=== PATIENT | female | born 1930 | race Caucasian/White ===

== ENCOUNTER → 2017-05-16 | Outpatient (CLI) | payer MEDICARE ==
[2017-05-16 09:15] LABS: EKG EKG PERFORMED
[2017-05-16 09:49] LABS: HCT 37.9 % (34.0-46.0); HDW 2.36; HGB 12.7 gm/dL (11.4-16.0); MCH 31.8 pg (25.0-35.0); MCHC 33.6 g/dL (31.0-37.0); MCV 94.6 fL (80.0-100.0); Mean Platelet Volume 6.8; RBC 4.01 m/uL (3.80-5.40); RDW 13.5 % (11.5-15.5); WBC 5.5 k/uL (3.8-10.6)
[2017-05-16 09:56] LABS: Partial Thromboplastin Time 22.4 sec (22.0-30.0); Prothrombin Time 9.9 sec (9.0-12.0)
[2017-05-16 10:07] LABS: ALT 37 U/L (9-52); AST 24 U/L (14-36); Alkaline Phosphatase 84 U/L (38-126); Anion Gap 10 mmol/L; Blood Urea Nitrogen 32 mg/dL (7-17); Calcium 9.3 mg/dL (8.4-10.2); Carbon Dioxide 26 mmol/L (22-30); Chloride 106 mmol/L (98-107); Glucose 102 mg/dL (74-99); Non-African American GFR(MDRD) 40 (>60 ml/min/1.73 sqM); Potassium 5.3 mmol/L (3.5-5.1); Sodium 142 mmol/L (137-145); Total Bilirubin 0.6 mg/dL (0.2-1.3); Total Protein 6.8 g/dL (6.3-8.2)
[2017-05-16 10:23] LABS: Appearance,Urine Clear (Clear); Bacteria,Urine Rare /hpf; Bilirubin,Urine Negative (Negative); Glucose,Urine (UA) Negative (Negative); Ketones,Urine Negative (Negative); Leukocyte Esterase,Urine Large (Negative); Mucus,Urine Rare /hpf; Nitrite,Urine Negative (Negative); PH, Urine 5.5 (5.0-8.0); Particle Count 2680; Protein,Urine Negative (Negative); RBC,Urine 11 /hpf (0-5); Specific Gravity,Urine 1.016 (1.001-1.035); Squamous Epithelial Cell,Urine 1 /hpf (0-4); UA Billing (MACRO vs. MICRO) MICRO; Urobilinogen,Urine <2.0 mg/dL (<2.0); WBC,Urine 16 /hpf (0-5)
== END | disposition home or self-care (01) ==
LOC: LABPAT 09:03
PROVIDERS: ATTEND Orthopaedic Surgery
DX: Z01.810 Encounter for preprocedural cardiovascular examination (principal); Z01.812 Encounter for preprocedural laboratory examination
CPT/HCPCS: 80053; 81001; 85027; 85610; 85730; 87070; 93005

== ENCOUNTER 2017-06-03 05:46 | Inpatient (IN) | payer MEDICARE ==
[2017-05-30 08:34] VITALS: BMI 35.5
--- NOTE | 2017-05-31 16:14 | CONS ---
REASON FOR CONSULTATION: Preoperative evaluation for right total knee arthroplasty. The patient is scheduled to undergo surgery on 06/03/2017. CHIEF COMPLAINT: Pain, right knee. HISTORY OF PRESENT ILLNESS: This elderly female has significant pain and degenerative arthritic symptoms in the right knee. The patient in view of this was evaluated for preoperative clearance upon request of Dr. Garcia. The patient has a history of hypertension which is fairly well controlled. No history of any coronary disease. She does follow with a underwear cutter. The patient has had history of impaired fasting blood sugars, with no problems of hyperglycemia. She does try to follow a healthy diet. No history of any coronary artery disease , cerebrovascular disease or any bleeding disorders. No recent infections. Past medical history is significant for: 1. Hypertension. 2. Degenerative arthritis, lumbosacral spine. 3. Obesity. 4. Impaired fasting blood glucose. 5. Osteoarthritis. 6. Mild intermittent bronchial asthma. 7. Asymptomatic sigmoid diverticulosis. Past surgical history is significant for: 1. Lumbosacral disc surgery. 2. Cholecystectomy. 3. Total abdominal hysterectomy with bilateral salpingo-oophorectomy. 4. Cataract surgery. SOCIAL HISTORY: Patient is a . Lives alone. No children at home. She takes care of herself. She has 2 boys who do the help. She spends quite a bit of time busy, doing gardening. PERSONAL HISTORY: Never smoked. No alcohol. ALLERGIES: LEVAQUIN causes rash. Medications include: 1. Losartan/hydrochlorothiazide 50/12.5 one daily. 2. Advair Diskus 100/50 one puff b.i.d. 3. Aldactone 25 mg daily. 4. Aspirin 81 mg daily. 5. Simvastatin 20 mg daily. REVIEW OF SYSTEMS: NEURO: Denies any headaches, dizziness, double vision, blurred vision. No symptoms of TIA, syncope, seizures. PSYCH: No anxiety, depression. CARDIAC: Denies chest pain, angina, palpitations. RESPIRATORY: Denies shortness of breath, cough, hemoptysis. GI: Denies any frequent nausea, vomiting, abdominal pain, diarrhea. : Denies any symptoms of dysuria or hematuria, urgency, frequency. EXTREMITIES: Denies any pain, edema. CONSTITUTIONAL: No fever or chills, weight gain or weight loss HEMATOLOGICAL: No anemia, bleeding disorder. ENDOCRINE: History of impaired fasting blood sugars. No significant problems with diabetes. SKIN: No rashes or open sores. MUSCULOSKELETAL: Pain in the right knee. PHYSICAL EXAMINATION: Pleasant female in no distress. VITAL SIGNS: Blood pressure 120/80, pulse rate 94 per minute, weight 213 pounds , height 5 feet 4 inches. HEENT: Normocephalic. Pupils reactive. Nostrils clear. Oral cavity moist. Pharynx clear. No gum disease. NECK: No JVD, carotid bruits or thyromegaly. CHEST: Clear to auscultation and percussion. CARDIAC: Normal S1, S2 with no gallops or murmurs. ABDOMEN: Soft. Bowel sounds present. Extremities revel no edema. Good pulses, both upper and lower extremities. Neurologically awake, alert, oriented x3 with well-coordinated movements. LABORATORY ASSESSMENT: Urine analysis which was positive for ( ) and treated with Bactrim. Patient's potassium was 5.3, BUN 32, creatinine 1.26 and GFR of 40. Normal hepatic function. CBC is normal. INR is normal. EKG was reported to have no acute changes. ASSESSMENT: 1. Hypertension, controlled. 2. Chronic kidney disease, stage III, secondary to hypertension. 3. History of impaired fasting blood sugars. 4. Degenerative arthritis, right knee. PLAN: Patient's Aldactone has been stopped. Recheck potassium prior to surgery. Anticipate potassium level to be in normal range. Patient appears stable to undergo the planned surgical procedure. Patient's condition discussed with the patient. MATYD
[~2017-06-03 05:46] MED LIST: ACETAMINOPHEN TAB 500 MG TAB PO ONE; HYDROmorphone 1 MG/ML 1 ML SYRINGE IVP PRN; MELOXICAM 7.5 MG TAB PO ONE; ONDANSETRON 4 MG/2 ML VIAL IVP ONE; TRANEXAMIC ACID 1,000 MG in SODIUM CHLORIDE 0.9% 100 ML IVPB ONE; ceFAZolin 2 GM in SODIUM CHLORIDE 0.9% 100 ML IVPB ONE
[2017-06-03] MEDS: LACTATED RINGERS 1,000 ML IV SCH ×3 (06:33→21:29)
[2017-06-03] MEDS ORDERED: fentaNYL (PF) 50 MCG/ML 2 ML AMP ONE (07:12)
[2017-06-03] MEDS ORDERED: TRANEXAMIC ACID 1,000 MG/10 ML VIAL ONE (07:12)
[2017-06-03] MEDS ORDERED: SODIUM CHLORIDE 0.9% 100 ML BAG ONE (07:12)
[2017-06-03] MEDS ORDERED: MIDAZOLAM 2 MG/2 ML VIAL ONE (07:12)
[2017-06-03] MEDS ORDERED: ePHEDrine 50 MG/ML 1 ML AMP ONE (07:12)
[2017-06-03] MEDS ORDERED: ceFAZolin 3,000 MG in SODIUM CHLORIDE 0.9% IRRIGATIO 3,000 ML IRRIGATION ONE (08:13)
[2017-06-03] MEDS ORDERED: LACTATED RINGERS 1,000 ML IV ONE ×2 (08:57)
[2017-06-03] MEDS ORDERED: MAGNESIUM HYDROXIDE 2,400 MG/10 ML CUP PO PRN (09:31)
[2017-06-03] MEDS ORDERED: ONDANSETRON 4 MG/2 ML VIAL IVP PRN (09:31)
[2017-06-03] MEDS ORDERED: NALOXONE 0.4 MG/ML 1 ML VIAL IV PRN (09:31)
[2017-06-03] MEDS ORDERED: HYDROmorphone 1 MG/ML 1 ML SYRINGE IVP PRN ×3 (09:31)
[2017-06-03] MEDS ORDERED: ACETAMINOPHEN TAB 325 MG TAB PO PRN (09:31)
[2017-06-03] MEDS ORDERED: BISACODYL 10 MG SUPP RECTAL PRN (09:31)
[2017-06-03] MEDS ORDERED: HYDROcodone/APAP 5-325MG 1 EACH TAB PO PRN (09:31)
[2017-06-03] MEDS ORDERED: NA PHOS,M-B/NA PHOS,DI-BA 133 ML ENEMA RECTAL PRN (09:31)
--- NOTE | 2017-06-03 10:07 | XR ---
EXAMINATION TYPE: XR knee limited RT DATE OF EXAM: 06/03/2017 COMPARISON: NONE HISTORY: Postop alignment right knee prosthesis TECHNIQUE: 2 views right knee FINDINGS: Right knee prosthesis is been placed tibial and femoral and patellar components. Postsurgic al changes are within the joint space. No acute fractures are evident. IMPRESSION: 1. No acute fractures post knee replacement.
[2017-06-03] MEDS: ceFAZolin 2 GM in SODIUM CHLORIDE 0.9% 100 ML IVPB SCH ×2 (16:21→23:58)
[2017-06-03] MEDS ORDERED: WARFARIN 5 MG TAB PO ONE (18:00)
[2017-06-03] MEDS: SENNOSIDES-DOCUSATE SODIUM 1 EACH TAB PO SCH (20:44)
[2017-06-03] MEDS: HYDROcodone/APAP 5-325MG 1 EACH TAB PO PRN (20:44)
[2017-06-03] MEDS ORDERED: TEMAZEPAM 15 MG CAP PO PRN (22:00)
[2017-06-03] MEDS: SYMBICORT 80-4.5 MCG INHALER INHALATION SCH (22:04)
[2017-06-04] MEDS: HYDROcodone/APAP 5-325MG 1 EACH TAB PO PRN ×3 (04:06→16:25)
[2017-06-04 07:10] LABS: INR 1.6 (<1.2); Prothrombin Time 15.2 sec (9.0-12.0)
[2017-06-04 07:13] LABS: Basophils % (A) 0 %; CH 32.3; CHCM 33.6; Eosinophils % (A) 0 %; HCT 32.9 % (34.0-46.0); HDW 2.39; HGB 10.9 gm/dL (11.4-16.0); Luc # (Auto) 0.08; Luc % (Auto) 1; Lymphocytes # (A) 1.3 k/uL (1.0-4.8); Lymphocytes % (A) 16 %; MCH 32.2 pg (25.0-35.0); MCHC 33.3 g/dL (31.0-37.0); MCV 96.6 fL (80.0-100.0); Mean Platelet Volume 7.5; Monocytes # (A) 0.4 k/uL (0-1.0); Monocytes % (A) 5 %; Neutrophils # (A) 6.7 k/uL (1.3-7.7); Neutrophils % (A) 79 %; RDW 14.2 % (11.5-15.5); WBC 8.5 k/uL (3.8-10.6); WBC (Perox) 8.89
[2017-06-04] MEDS ORDERED: ASPIRIN 81 MG CHEW PO SCH (09:00)
[2017-06-04] MEDS: SYMBICORT 80-4.5 MCG INHALER INHALATION SCH ×2 (09:11→21:01)
[2017-06-04] MEDS: hydrOXYzine PAMOATE 25 MG CAP PO PRN ×2 (10:18→16:25)
--- NOTE | 2017-06-04 11:19 | P.PN ---
Subjective Principal diagnosis: Status post right total knee arthroplasty Patient is seen at bedside this morning. She is postop day #1 from a right total knee arthroplasty. She has pain at the surgical site as expected but denies any new complaints. She denies numbness, tingling or calf pain. Review of systems is negative for fever, chills, chest pain, shortness of breath or other. Objective - Vital Signs Vital signs: Vital Signs Temp 97.8 F 06/04/17 07:00 Pulse 67 06/04/17 07:00 Resp 14 06/04/17 07:00 BP 144/68 06/04/17 07:00 Pulse Ox 94 L 06/04/17 07:00 Intake & Output 06/03/17 06/04/17 06/04/17 18:59 06:59 18:59 Intake Total 1831 1300 Output Total 290 1200 600 Balance 1541 100 -600 Weight 93.894 kg Intake: IV 1401 Lactated Ringers 1,000 ml 300 @ 100 mls/hr IV .Q10H CHLOÉ Rx#:[id number] Intake, IV Titration 1300 Amount Lactated Ringers 1,000 ml 1200 @ 100 mls/hr IV .Q10H CHLOÉ Rx#:[id number] ceFAZolin 2 gm In Sodium 100 Chloride 0.9% 100 ml @ 100 mls/hr IVPB Q8H CHLOÉ Rx#:[id number] Oral 430 Output: Urine 110 1200 600 Uretheral ([place]) 600 Estimated Blood Loss 180 Other: Voiding Method Indwelling Catheter Indwelling Catheter - Exam Inspection reveals a benign surgical wound. There is no active bleeding or drainage. Neurovascular status is intact throughout the lower extremity with motor and sensation fully intact. Calf is soft and nontender. 2+ dorsalis pedis pulse and less than 2 second cap refill is present. - Constitutional General appearance: Present: no acute distress - Psychiatric Psychiatric: Present: A&O x's 3, appropriate affect, intact judgment & insight - Labs CBC & Chem 7: 06/04/17 06:38 06/03/17 06:26 Labs: Abnormal Lab Results - Last 24 Hours (Table) 06/04/17 06/04/17 Range/Units 06:38 06:38 RBC 3.40 L (3.80-5.40) m/uL Hgb 10.9 L (11.4-16.0) gm/dL Hct 32.9 L (34.0-46.0) % PT 15.2 H (9.0-12.0) sec INR 1.6 H (<1.2) Assessment and Plan (1) Status post total right knee replacement Narrative/Plan: She will continue with routine postop orthopedic protocol including pain management, wound care, physical therapy, DVT prophylaxis and medical management. Expect that she will discharge to home tomorrow, Tuesday Status: Acute Time with Patient: Less than 30
--- NOTE | 2017-06-04 11:37 | PN ---
HISTORY OF PRESENT ILLNESS: This is an 86-year-old female who was admitted to the hospital and has undergone right total knee arthroplasty. Patient is seen postoperatively. She does have a history of bronchial asthma, previous history of impaired fasting blood sugars and hypertension. No history of any lung disease. REVIEW OF SYSTEMS: NEURO: Denies any headaches, dizziness. PSYCH: No anxiety. CARDIAC: Denies chest pain, angina, palpitations. RESPIRATORY: Denies shortness of breath or wheezing. GI: No nausea, vomiting, abdominal pain, diarrhea. : No symptoms of dysuria or hematuria. Has IDC. EXTREMITIES: Denies pain at present. CONSTITUTIONAL: No fever or chills. PHYSICAL EXAMINATION: Pleasant female in no distress. VITAL SIGNS: Temperature was 96.1, pulse 71, respiration 16, blood pressure 134/ 65, pulse ox of 95% on 1 L. HEENT: Normocephalic. NECK: Supple. No JVD. CHEST: Clear to auscultation. CARDIAC: Normal S1, S2 with no gallops or murmurs. ABDOMEN: Soft. Bowel sounds present. Extremities revel no edema. Neurologically awake, alert, oriented x3 with well-coordinated movements, both upper extremities. LABORATORY ASSESSMENT: Potassium of 4.4 this morning, preoperatively. ASSESSMENT: 1. Hypertension, controlled. 2. History of bronchial asthma, stable. 3. Status post knee arthroplasty. PLAN: The patient is stable. Continue present medical regimen. Patient's condition was discussed with the patient. Prognosis guarded. MTDD
[2017-06-04] MEDS ORDERED: WARFARIN 2.5 MG TAB PO ONE (18:00)
[2017-06-04] MEDS: LACTATED RINGERS 1,000 ML IV SCH ×2 (18:13→20:57)
--- NOTE | 2017-06-04 21:24 | P.PN ---
Subjective Principal diagnosis: Status post right knee arthroplasty History present illness and Hospital course: This 86-year-old female is status post right knee arthroplasty. She has a history of hypertension controlled on medications. History of degenerative arthritis. History of bronchial asthma with mild intermittent disease processes with no acute symptoms. She is doing well. Denies any symptoms except for mild pain in the right knee. Denies any headaches or dizziness patient's pains controlled with medication. She did take a few steps today. REVIEW OF SYSTEMS: Neuro: Denies any headaches dizziness. Psych: Denies anxiety depression feels oriented. Cardiac: Denies chest pain and angina palpitations. Respiratory: Denies shortness of breath cough. GI: Denies nausea vomiting or abdominal pain. No diarrhea or constipation, no bowel movement yet. : Denies dysuria hematuria. Extremities: Right knee pain. No edema. Skin: Intact. Constitutional: No fever, chills. Objective - Vital Signs Vital signs: Vital Signs Temp 98.2 F 06/04/17 15:00 Pulse 84 06/04/17 15:00 Resp 16 06/04/17 15:00 BP 130/92 06/04/17 15:00 Pulse Ox 97 06/04/17 15:00 Intake & Output 06/04/17 06/04/17 06/05/17 06:59 18:59 06:59 Intake Total 1300 Output Total 1200 600 Balance 100 -600 Weight 93.894 kg Intake: Intake, IV Titration 1300 Amount Lactated Ringers 1,000 ml 1200 @ 100 mls/hr IV .Q10H CHLOÉ Rx#:[id number] ceFAZolin 2 gm In Sodium 100 Chloride 0.9% 100 ml @ 100 mls/hr IVPB Q8H CHLOÉ Rx#:[id number] Output: Urine 1200 600 Uretheral ([place]) 600 Other: Voiding Method Toilet # Voids 3 PHYSICAL EXAMINATION: Cooperative, at present in no acute distress. HEENT: Neck supple. No JVD. Chest: Clear to auscultation. Cardiac: Normal S1-S2 no gallops no murmur . Abdomen: Soft bowel sounds present. Extremities: edema right lower leg Neurologically:[Awake, alert, oriented with well-coordinated movements Upper extremities] - Labs CBC & Chem 7: 06/04/17 06:38 06/03/17 06:26 Labs: Abnormal Lab Results - Last 24 Hours (Table) 06/04/17 06/04/17 Range/Units 06:38 06:38 RBC 3.40 L (3.80-5.40) m/uL Hgb 10.9 L (11.4-16.0) gm/dL Hct 32.9 L (34.0-46.0) % PT 15.2 H (9.0-12.0) sec INR 1.6 H (<1.2) Assessment and Plan Plan: ASSESSMENT: 1. Hypertension controlled. 2. Mild intermittent bronchial asthma with no active symptoms. 3. Obesity. 4. Right knee status post arthroplasty. 5. Anemia secondary to acute blood loss postsurgery. PLAN: Continue present medical regimen patient's condition discussed with the patient prognosis guarded.
[2017-06-05] MEDS: SENNOSIDES-DOCUSATE SODIUM 1 EACH TAB PO SCH (00:25)
[2017-06-05] MEDS: HYDROcodone/APAP 5-325MG 1 EACH TAB PO PRN ×2 (00:35→07:51)
[2017-06-05] MEDS: SYMBICORT 80-4.5 MCG INHALER INHALATION SCH (06:53)
[2017-06-05 07:22] LABS: INR 1.7 (<1.2); Prothrombin Time 16.9 sec (9.0-12.0)
[2017-06-05] MEDS: hydrOXYzine PAMOATE 25 MG CAP PO PRN (07:51)
[2017-06-05 10:25] VITALS: BP 148/83; PULSE 70; RESP 15; TEMP 98.4
--- NOTE | 2017-06-05 12:27 | P.DS ---
Providers Date of admission: 06/03/17 05:46 Expected date of discharge: 06/05/17 Attending physician: Raji Garcia Consults: 06/03/17 09:31 Consult Physician Routine Consulting Provider: Nikko Wang Consult Reason/Comments: medical management Do you want consulting provider notified?: Yes Primary care physician: Nikko Wang - Discharge Diagnosis(es) (1) Status post total right knee replacement Patient was admitted to the OR on 06/03/2017 to undergo right total knee arthroplasty. She had failed conservative measures as an outpatient and desired to proceed with elective surgery after given informed consent. She underwent the above procedure which she tolerated well without complication. Postoperative hospital course has remained without complication. On day of discharge she is afebrile, vital signs stable, labs within acceptable ranges, tolerating by mouth meds and diet, voiding without difficulty, positive flatus, denies abdominal pain or calf pain, and pain controlled on oral pain medication and has no new complaints. Review of systems is negative for fever, chills, chest pain, shortness breath, nausea, vomiting, dizziness, headaches, slurred speech or other Current Visit: Yes Status: Acute Priority: Medium Procedures: Right total knee arthroplasty Patient Condition at Discharge: Good Plan - Discharge Summary New Discharge Prescriptions: New HYDROcodone/APAP 5-325MG [[place] 5-325] 1 - 2 each PO Q4-6H PRN #90 tab PRN Reason: Pain Sennosides-Docusate Sodium [Senokot-S] 1 tab PO BID #60 tablet Warfarin [Coumadin] 2.5 mg PO Q2D #1 tab Acetaminophen Tab [Tylenol] 650 mg PO Q4HR PRN tab PRN Reason: Pain Scale 1 To 5 HYDROcodone/APAP 5-325MG [[place] 5-325] 2 each PO Q6HR PRN tab PRN Reason: Pain Scale 6 To 10 Spironolactone [Aldactone] 25 mg PO DAILY #30 tablet No Action Fluticasone/Salmeterol [Advair 100-50 Diskus] 1 inhalation PO RT-BID Simvastatin [Zocor] 20 mg PO DAILY Losartan-Hctz 50-12.5 mg [Hyzaar 50-12.5] 1 tab PO DAILY Aspirin [Adult Low Dose Aspirin EC] 81 mg PO DAILY Discharge Medication List Fluticasone/Salmeterol [Advair 100-50 Diskus] 1 inhalation PO RT-BID 05/30/17 [ History] Losartan-Hctz 50-12.5 mg [Hyzaar 50-12.5] 1 tab PO DAILY 05/30/17 [History] Simvastatin [Zocor] 20 mg PO DAILY 05/30/17 [History] Aspirin [Adult Low Dose Aspirin EC] 81 mg PO DAILY 06/03/17 [History] HYDROcodone/APAP 5-325MG [[place] 5-325] 1 - 2 each PO Q4-6H PRN #90 tab 06/03/17 [Rx] Sennosides-Docusate Sodium [Senokot-S] 1 tab PO BID #60 tablet 06/03/17 [Rx] Warfarin [Coumadin] 2.5 mg PO Q2D #1 tab 06/03/17 [Rx] Acetaminophen Tab [Tylenol] 650 mg PO Q4HR PRN tab 06/05/17 [Rx] HYDROcodone/APAP 5-325MG [[place] 5-325] 2 each PO Q6HR PRN tab 06/05/17 [Rx] Spironolactone [Aldactone] 25 mg PO DAILY #30 tablet 06/05/17 [Rx] Follow up Appointment(s)/Referral(s): Raji Garcia DO [Doctor of Osteopathic Medicine] - 2 Weeks Ambulatory/Diagnostic Orders: Continuous Passive Motion (CPM) Machine [DME.AMB1] Time Frame: 3 Weeks, Facility : [facility], Location: Case Management Activity/Diet/Wound Care/Special Instructions: May bear weight as tolerated with walker. May shower if no drainage from incision. CPM 5-6 hrs per day Discharge Disposition: HOME WITH HOME HEALTH SERVICES
--- NOTE | 2017-06-06 12:39 | PN ---
CHIEF COMPLAINT: Re-evaluation. HISTORY OF PRESENT ILLNESS: This 86-year-old was admitted to the hospital and underwent right total knee arthroplasty. She is doing well. The patient was seen by Orthopedics and they plan to discharge her. REVIEW OF SYSTEMS: NEUROLOGIC: Denies any headaches, dizziness. PSYCHIATRIC: No anxiety. CARDIAC: No chest pain, angina, palpitations. RESPIRATORY: No shortness of breath, cough. GASTROINTESTINAL: No nausea, vomiting, abdominal pain, diarrhea. No bowel movement. GENITOURINARY: No symptoms of dysuria, hematuria. EXTREMITIES: Some pain in the right knee joint. Patient has been up and walked. PHYSICAL EXAMINATION: A pleasant female in no distress. VITAL SIGNS: Temperature 98.4, pulse 70, respirations 15, blood pressure 148/83 , pulse ox 97% on room air. HEENT: Normocephalic. NECK: No JVD. CHEST: Clear to auscultation. CARDIAC: Normal S1, S2 with no gallops. Systolic murmur 2/6 left sternal border. ABDOMEN: Soft. Bowel sounds are normal. EXTREMITIES: Reveals trace edema of the right ankle. NEUROLOGIC: Awake, alert, oriented with well coordinated movements both upper extremities. LABORATORY ASSESSMENT: INR of 1.7. ASSESSMENT: 1. Anemia secondary to acute blood loss post surgery. 2. Status post right total knee arthroplasty. 3. Degenerative arthritis. 4. Mild intermittent bronchial asthma, stable. 5. Hypertension. PLAN: The patient is stable. Continue the present medical regimen. The patient is planned for discharge home today. She will continue her home medications. Aldactone reduced from 50 mg to 25 mg daily. Meanwhile she will continue the losartan and hydrochlorothiazide. Patient's condition is stable. MTDD
--- NOTE | 2017-06-08 12:10 | OP ---
DATE OF SERVICE: 06/03/2017 SURGEON: ESTELLA JOSE D.O. DIRECTOR HOME: [facility] PREOPERATIVE DIAGNOSIS: Degenerative joint disease of the right knee. POSTOPERATIVE DIAGNOSIS: Degenerative joint disease of the right knee. OPERATION: Right total knee arthroplasty utilizing the Adonis Persona press fit. ANESTHESIA: ESTIMATED BLOOD LOSS: SPECIMENS REMOVED: COMPLICATIONS: OPERATIVE FINDINGS: PROCEDURE: The patient was taken to the operative suite and placed in the supine position. Spinal anesthesia was performed by the department of anesthesiology. Betadine prep was carried out from mid thigh to mid calf. Sterile drapes applied in the usual manner. A medial parapatellar incision was developed. Medial retinaculum was incised along. The patella was everted and dislocated laterally and the knee was brought into flexion and held in position with leg villegas. The intramedullary cutting guide was utilized for appropriate cuts in preparation for size 7 femoral component. The size 7 right femoral cutting guide was selected and components impacted into position. The alignment of bone and component interface was noted. Tibial cutting guide was brought in position. Appropriate wafer cut developed. The medial and lateral menisci were excised. A size 4 plate was inserted and 10 mm provisionary spacer was utilized. Alignment with medial varus corrected. The tibial tray size 4 was selected and marked for position and appropriate drill hole for peg hole was drilled. The 10 mm spacer had been inserted and range of motion for the alignment and stability was well maintained. The patella was then everted and a shelving planer was utilized in shaping the patella. A 32 mm patella button was selected and appropriate peg hole was initiated. The trial components were removed. Copious antibiotic solution was utilized in preparing the bone. Pulsavac antibiotic solution was utilized in preparing the final components. The size 7 right femoral component was then impacted into position. The trabecular metal plate size 4 was impacted into position and alignment was grossly maintained. The 32 mm patellar press fit component was then placed in peg hole and secured. The component was well aligned and the final 10 mm polyethylene spacer was inserted and aligned in position. With the knee in slight flexion, pneumatic tourniquet was deflated. The knee was irrigated with Pulsavac antibiotic solution. Superficial bleeding was controlled with electrocautery. The retinaculum was then approximated with 3-0 Vicryl suture in horizontal mattress fashion, #2 Quill suture was utilized in reapproximating the retinaculum in running fashion. A 2-0 Vicryl suture was utilized for closure of the subcutaneous tissue and Quill was utilized in subcuticular closure. Dermabond was utilized to seal the wound. Betadine and sterile pressure dressing was applied. The patient was transferred to recovery room in satisfactory postop condition. GROSS PATHOLOGY: There was degenerative joint disease of the right knee. EDWARD
== END 2017-06-05 13:15 | disposition home health service (06) | DRG 470 ==
LOC: 2ORMAIN 05:46 → 3SUR 09:29
PROVIDERS: ADMIT Orthopaedic Surgery; ATTEND Orthopaedic Surgery
PROC: 0SRC0JA Replacement of Right Knee Joint with Synthetic Substitute, Uncemented, Open Approach (ICD-10-PCS; principal; 2017-06-03 07:00)
DX: M17.11 Unilateral primary osteoarthritis, right knee (principal); D62 Acute posthemorrhagic anemia; N18.3 Chronic kidney disease, stage 3 (moderate); I12.9 Hypertensive chronic kidney disease with stage 1 through stage 4 chronic kidney disease, or unspecified chronic kidney disease; E78.5 Hyperlipidemia, unspecified; E66.9 Obesity, unspecified; J45.909 Unspecified asthma, uncomplicated; K57.30 Diverticulosis of large intestine without perforation or abscess without bleeding; Z90.710 Acquired absence of both cervix and uterus; Z60.2 Problems related to living alone
CPT/HCPCS: 84132; 85025; 85610; 88300; 94640

== ENCOUNTER → 2020-03-13 | Outpatient (CLI) | payer MEDICARE | END | disposition home or self-care (01) | LOC: LABWHC1 09:17 | PROVIDERS: ATTEND Orthopaedic Surgery Sports Medicine | DX: M17.12 Unilateral primary osteoarthritis, left knee (principal) | CPT/HCPCS: 87070 ==

== ENCOUNTER → 2020-06-05 | Outpatient (CLI) | payer MEDICARE ==
--- NOTE | 2020-06-05 14:17 | CONS ---
CONSULTATION DATE OF SERVICE: 06/05/2020 An 89-year-old lady who has been evaluated in the [facility] for obstructive sleep apnea-hypopnea syndrome. HISTORY OF PRESENT ILLNESS/SLEEP-WAKE EVALUATION: Patient has history of obstructive sleep apnea for many years, diagnosed in another institution. Last sleep study more than 5 years ago. She is not sure how old is her CPAP unit. Presently, she is using her CPAP equipment every night for the whole night. I checked her CPAP unit, pressure is 12 cm of water, usage / nights for more than 4 hours. Machine does not have information about apnea-hypopnea index. Patient's usual sleep schedule from 10:30 pm until 6:30 am. No problem with falling asleep now, although she has a TV in bedroom. She sleeps on the back and side position by herself, so no clear information about her quality of sleep and snoring. She wakes up from sleep with nocturia. In the morning, she wakes up tired according to her questionnaire. Rolfe Sleepiness Scale although is 1. PAST MEDICAL HISTORY: Hypertension, hyperlipidemia. PAST SURGICAL HISTORY: Left knee replacement in March of 2020, status post back surgery in 2008. MEDICATIONS: Losartan, spironolactone, simvastatin, aspirin. REVIEW OF SYSTEMS: Awakenings from sleep. PHYSICAL EXAM: lady without distress, BP 118/73, HR 76, RR 16, height 5, 1, weight 206, body mass index 38.9, temperature 98.3, oxygen saturation at room air 97%. OROPHARYNX: Low position of soft palate. NECK: 15 inches in circumference. ABDOMEN: Obese, extremities 1+ ankle edema. LUNGS: Clear to percussion and to auscultation. Good air exchange. No wheezing or rhonchi. HEART: S1, S2 regular. No murmurs, gallops, or rubs. EXTREMITIES: No clubbing or cyanosis. [employer]: Awake, alert, and oriented X3. Cranial nerves 2 to 7 intact. There is no fasciculation or atrophy. noted. No focal deficits observed. IMPRESSION: 1. Obstructive sleep apnea-hypopnea syndrome for many years. Patient demonstrated good compliance with treatment. CPAP unit looks old. Patient wakes up from sleep. The machine does not have information about apnea-hypopnea index. The patient feels tiredness and sleepiness in the morning after awakenings. 2. Obesity. 3. Hypertension. 4. Hyperlipidemia. 5. Status post left knee replacement in March of 01/03/2020. 6. Status post back surgery in the past. PLAN: 1. I will repeat the CPAP titration for evaluation of effective CPAP pressure at the present time, and then patient possibly will get a new CPAP unit. 2. Sleep hygiene with regular time for 7-1/2 to 8 hours. 3. No driving if feeling sleepiness. 4. Losing weight. 5. Prescription for all necessary CPAP supplies. 6. Patient complains that part of her cleaning machine is broken, prescription to fix or replace the spot. Thank you very much for referring this patient for consultation. Sincerely, Aung Brown MD, PhD, FAASM Diplomat of [employer] [employer] Deep Tissue Massage Therapist of [facility] [place] ABDOUL / SHON: [id number] /
== END | disposition home or self-care (01) ==
LOC: SLEEP 10:47
PROVIDERS: ATTEND Internal Medicine
DX: G47.33 Obstructive sleep apnea (adult) (pediatric) (principal); E66.9 Obesity, unspecified; I10 Essential (primary) hypertension; E78.5 Hyperlipidemia, unspecified; Z96.652 Presence of left artificial knee joint; Z99.89 Dependence on other enabling machines and devices; Z98.890 Other specified postprocedural states
CPT/HCPCS: 99211

== ENCOUNTER → 2020-10-15 | Outpatient (CLI) | payer MEDICARE ==
--- NOTE | 2020-10-15 12:12 | XR ---
Lumbar spine HISTORY: Low back pain 4 views the lumbar spine submitted and correlated prior exam 09/09/2010 Patient is status post posterior lumbar fusion L4-5. There is multilevel spondylosis present. Surgica l clips noted incidentally in the right upper quadrant. Lumbar vertebral bodies show preserved height and alignment. Bone mineralization is reduced. Anterior wedge compression deformity noted at T12, there is associated vacuum phenomenon at T11-12 and T12-L1 disc space. Loss of disc height is present at intervertebral levels with relative sparing at L4-5. D ense vascular calcifications are noted incidentally. Sclerosis noted posterior elements of the lower lumbar spine IMPRESSION: Wedge compression deformity present at T12. Degenerative disc disease, postop changes, os teopenia. Facet arthropathy change.
== END | disposition home or self-care (01) ==
LOC: RADXRMAIN 10:03
PROVIDERS: ATTEND Internal Medicine
DX: M51.37 Other intervertebral disc degeneration, lumbosacral region (principal); M47.817 Spondylosis without myelopathy or radiculopathy, lumbosacral region; Z98.890 Other specified postprocedural states; M85.88 Other specified disorders of bone density and structure, other site; M48.54XA Collapsed vertebra, not elsewhere classified, thoracic region, initial encounter for fracture
CPT/HCPCS: 72100

== ENCOUNTER → 2020-11-03 | Outpatient (CLI) | payer MEDICARE ==
--- NOTE | 2020-11-03 10:35 | BD ---
EXAMINATION TYPE: Axial Bone Density DATE OF EXAM: 11/03/2020 COMPARISON: NONE CLINICAL HISTORY: Height: 61 Weight: 209.1 FRAX RISK QUESTIONS: Alcohol (3 or more units per day): no Family History (Parent hip fracture): no Glucocorticoids (More than 3mos): no (Ex: prednisone, prednisolone, methylprednisolone, dexamethasone, and hydrocortisone). History of Fracture in Adulthood: yes Secondary Osteoporosis: 1. Type 1 Diabetes: no 2. Hyperthyroidism: no 3. Menopause before 45: no 4. Malnutrition: no 5. Chronic liver disease: no Rheumatoid Arthritis: no Current Tobacco Use: no RISK FACTORS HISTORY OF: Spine Fracture: t spine When: 2019 Surgery to Spine/Hip(right/left)/Wrist (right/left): lumbar spine When: 6 years ago Family History of Osteoporosis: no Active: yes Diet low in dairy products/other sources of calcium: no Postmenopausal woman: Lost more than 2 inches in height since high school: yes MEDICATIONS: cholesterol meds, heart meds Additional History: EXAM MEASUREMENTS: Bone mineral densitometry was performed using the VoAP[employer] System. Bone mineral density about the R hip (g/cm2): 0.823 Bone mineral density about the L hip (g/cm2): 0.887 T Score values are as follows: -----R Neck: -1.5 -----L Neck: -1.1 -----R Total: -0.8 -----L Total: -0.7 Bone mineral density has: decreased -1.7 % since study of: 03.27.2007 Bone mineral density about the R Wrist (g/cm2): 0.679 T Score values are as follows: -----Dist. R+U: 0.0 -----Prox. R+U: 0.1 -----Radius total: 0.1 Bone mineral density : baseline IMPRESSION: No evidence for osteoporosis or osteopenia. NOTE: T-SCORE=SD OF THE YOUNG ADULT MEAN.
== END | disposition home or self-care (01) ==
LOC: RADBDWWP 09:21
PROVIDERS: ATTEND Internal Medicine
DX: N95.1 Menopausal and female climacteric states (principal); M85.88 Other specified disorders of bone density and structure, other site
CPT/HCPCS: 77080